=== PATIENT | female | born 1985 | race Caucasian/White ===

== ENCOUNTER 2017-03-24 21:31 | Inpatient (IN) | payer BC ==
[~2017-03-24] VITALS: Ht 162.6 cm; Wt 67.7 kg
[~2017-03-24 21:31] MED LIST: PREN1TAB73 PO; RANI-252 PO
[2017-03-24] MEDS ORDERED: LR 1,000 ML IV PRN (21:55)
[2017-03-24] MEDS ORDERED: OXYTOCIN 30 UNIT in D5LR 500 ML SCH (22:00)
[2017-03-24] MEDS ORDERED: CALCIUM CARBONATE 500mg Chewable TAB PO PRN (22:00)
[2017-03-24] MEDS ORDERED: ACETAMINOPHEN 500 MG TABLET PO PRN (22:00)
[2017-03-24] MEDS ORDERED: MAG-AL + SIM LIQUID 30 ML UDC PO PRN (22:00)
[2017-03-24] MEDS ORDERED: D5LR 1,000 ML IV PRN (22:00)
[2017-03-24 22:22] VITALS: BP 112/54; PULSE 82; RESP 20; TEMP 98.3
[2017-03-24 22:23] LABS: HGB - HEMOGLOBIN 11.5 GM/DL (12-16); MEAN CORPUSCULAR HGB 31.4 UUG (26-34); MEAN CORPUSCULAR HGB CONC(MCHC 33.8 GM/DL (31-37); MEAN CORPUSCULAR VOLUME 92.9 UM3 (80-100); MEAN PLATELET VOLUME 11.6 UM3 (9.4-12.4); RED BLOOD COUNT 3.66 M/MM3 (4.00-5.20); WBC - WHITE BLOOD COUNT 8.3 T/MM3 (4.5-11.0)
--- NOTE | 2017-03-24 23:35 | ANESOB ---
Epidural/ Date/Time DATE: 03/24/17 TIME: 23:34 Preop Diagnosis Procedure: Labor Epidural Plan: Epidural Height: 5 ' 4.00 " Weight: 67.700 kg BMI: kg/m2 P:1 Medications & Allergies Inpatient Medications Current Medications Medications (Trade) Dose Ordered Sig/Nasim Start Time Stop Time Status Last Admin Dose Admin Lactated Ringer's (Lactated Ringers) 1,000 ml @ 0 mls/hr Q0M PRN 03/24/17 21:55 UNV 03/24/17 22:19 0 MLS/HR Acetaminophen (Tylenol Extra Strength) 1-2 TABS = 500-1,000 MG Q4H PRN 03/24/17 22:00 UNV Al Hydroxide/Mg Hydroxide (Maalox) 30 ml Q4H PRN 03/24/17 22:00 UNV Calcium Carbonate 1-2 TABS Q2H PRN 03/24/17 22:00 UNV Dextrose/Lactated Ringer's 1,000 ml @ 0 mls/hr Q0M PRN 03/24/17 22:00 UNV 03/24/17 22:20 0 MLS/HR Oxytocin/Dextrose/ Lactated Ringer's (Pitocin/D5lr) 503 ml @ 0 mls/hr Q0M 03/24/17 22:00 UNV 03/24/17 22:20 0 MLS/HR Pnv95/Ferrous Fumarate/FA ( Tablet) 1 Each Tablet, 1 TAB PO DAILY, ( Reported) Last Taken: on 03/23/17 2200 Ranitidine HCl (Zantac 75) 75 Mg Tablet, 75 MG PO, (Reported) Last Taken: on 03/24/17 0800 Coded Allergies: erythromycin base (Verified Allergy, Mild, VOMITING, 03/10/17) Medical/Surgical History Anesthesia PMH: Denies: *Diabetes, Anesthesia Reactions, Malignant Hyperthermia Smoking Status: Never smoker Does patient use chewing tobac: No Second Hand Exposure: No Substance Use Type: does not use Alcohol Intake: none Anesthesia Adverse Reactions: FOUND none Family Hx of Anesthesia Advers: none Hx of Motion Sickness: No Complications During : No Pertinent Findings Laboratory Tests 03/24/17 22:13 EKG Rhythm: Sinus Rhythm Physical Exam Respiratory: Lungs clear Cardiovascular: No murmur, Regular rate, rhythm Airway Assessment Mallampati Score: I TMD: 3 Fingerbreadths Neck Extension: Good Overall Assessment: No Airway Concerns ASA: 2 Discussion Discussed risks/options/alternatives of anesthesia. Patient consents. Nursing pain assessment noted. Present for Discussion: Present: Spouse Attestation Statement Prior to the delivery of any anesthetic medication, I examined the patient, developed the plan, obtained the patient's consent and discussed the risk and benefits of the procedure with the patient/guardian. If the note happens to be signed after anesthesia start time, it is only due to providing efficient care of the patient and documenting at a time when the computer is available. ALFIE BONNER I [employer] COMPENSATION SPECIALIST March 24, 2017 23:35
[2017-03-24] MEDS ORDERED: ROPIVACAINE 1% 200 MG, SUFENTANIL 50 MCG in NORMAL SALINE 80 ML EPI PRN (23:45)
[2017-03-24] MEDS ORDERED: DiphenhydrAMINE 50 MG/ML INJECTION IV PRN (23:45)
[2017-03-24] MEDS ORDERED: NALOXONE 0.4mg/ml INJECTION IV PRN (23:45)
[2017-03-24] MEDS ORDERED: ONDANSETRON 4mg/2ml INJECTION IV PRN (23:45)
[2017-03-25] MEDS ORDERED: OXYTOCIN 30 UNIT in D5LR 500 ML IV ONE (01:43)
[2017-03-25] MEDS ORDERED: OXYTOCIN 30 UNIT in D5W 500 ML IV ONE (01:43)
[2017-03-25] MEDS ORDERED: MAG-AL + SIM LIQUID 30 ML UDC PO PRN (01:45)
[2017-03-25] MEDS ORDERED: HYDROCODONE/APAP 5 mg/325 mg TABLET PO PRN (01:45)
[2017-03-25] MEDS ORDERED: CALCIUM CARBONATE 500mg Chewable TAB PO PRN (01:45)
[2017-03-25] MEDS ORDERED: DiphenhydrAMINE 25 MG CAPSULE PO PRN (01:45)
[2017-03-25] MEDS ORDERED: MILK OF MAGNESIA 30 ML SUSP PO PRN (01:45)
[2017-03-25] MEDS ORDERED: ACETAMINOPHEN 500 MG TABLET PO PRN (01:45)
[2017-03-25] MEDS ORDERED: HYDROCORTISONE 2.5% CREAM 30 GM RECTALLY PRN (01:45)
[2017-03-25] MEDS ORDERED: PHENYLEPHRINE RECTAL SUPPOSITORY RECTALLY PRN (01:45)
[2017-03-25] MEDS: IBUPROFEN 800 MG TABLET PO PRN ×3 (05:00→21:36)
[2017-03-25 05:30] VITALS: BP 99/56; PULSE 70; RESP 16; TEMP 97.6; O2SAT 99
[2017-03-25] MEDS ORDERED: PRENATAL VITAMIN TABLET PO SCH (09:00)
[2017-03-25] MEDS: DOCUSATE CALCIUM 240 MG CAPSULE PO SCH (09:00)
--- NOTE | 2017-03-25 09:22 | ANESPO ---
Post-Op Note Date 03/25/17 Time: 09:22 Status Pt Participated in Evaluation: Pt participated in person Vital Signs Date Time Temp Pulse Resp B/P Pulse Ox O2 Delivery O2 Flow Rate FiO2 03/25/17 05:30 97.6 70 16 99/56 99 Room Air Respiratory Function: Airway patent, Regular respirations Cardiovascular Function: Regular pulse Mental Status: Alert/oriented Pain Level Intensity: 0 Hydration: Taking po fluids Complications during Recovery None apparent Follow-Up Instructions Instructions Per Surgeon ALFIE BONNER CRNA March 25, 2017 09:22
--- NOTE | 2017-03-25 10:25 | LDNF ---
DATE OF DELIVERY: 03/25/2017 DIAGNOSES 1. 31-year-old white female, G2, P1 at 38 weeks 5 days gestational age. 2. Premature rupture of membranes. 3. Pitocin induction for PROM. 4. Epidural block. 5. Spontaneous vaginal delivery. 6. OP rotating to OA. 7. Nuchal cord x 2. 8. 3120 g, male infant, 8/9/9 Apgars (Can Sheppard). This is a patient of Dr. Biggs who came in at approximately 9:30 this evening complaining of spontaneous rupture of membranes at 2050 p.m. on 03/24/2017. SROM was confirmed and the patient was initially 4 cm. The patient was admitted. heart tones were reactive. She was not darcy, so Pitocin was started for an induction because of PROM. It reached a maximum of 8 milliunits a minute. At approximately midnight she was 7 cm dilated, in OP presentation. At 1:10 a.m. she was completely dilated and OA presentation. We set up and began pushing. Shortly thereafter we had a spontaneous vaginal delivery from the OA position. was bulb suctioned after delivery of head and then again after delivery of the body. There was a nuchal cord x 2 that was reduced and then the cord was allowed to drain for about a [id number] before it was doubly clamped and cut. The infant's father cut the cord. Apgars were 8/9/9. Infant was initially placed on the mother's abdomen. Placenta delivered spontaneously 4 minutes later. EBL was 300 ml. Perineum was intact. At the time of dictation mother and infant are doing well. [facility]
[2017-03-25 13:57] VITALS: BP 106/58; PULSE 64; RESP 16; TEMP 97.7; O2SAT 100
[2017-03-25 15:28] LABS: HCT - HEMATOCRIT 30.4 % (36-46); MEAN CORPUSCULAR HGB CONC(MCHC 32.9 GM/DL (31-37); MEAN CORPUSCULAR VOLUME 94.1 UM3 (80-100); MEAN PLATELET VOLUME 11.6 UM3 (9.4-12.4); RED BLOOD COUNT 3.23 M/MM3 (4.00-5.20); WBC - WHITE BLOOD COUNT 10.6 T/MM3 (4.5-11.0)
--- NOTE | 2017-03-25 17:19 | PNPDOC ---
Progress Note Date 03/25/17 No complaints. Nursing well. AVSS Abd NT Stable Consider dismissal in a.milka. HILARIO VERNON MD March 25, 2017 17:19
[2017-03-25 17:45] VITALS: BP 126/66; PULSE 70; RESP 16; TEMP 98.2
[2017-03-25 21:30] VITALS: BP 111/61; PULSE 83; RESP 14; TEMP 98.2
--- NOTE | 2017-03-26 02:18 | NUR ---
SHIFT SUMMARY: VSS, pt's pain controlled with PO Motrin. Fundus firm at 1below umbilicus, light lochia noted. Up ad momo, voiding, showered and performing all personal cares. Pt tolerating general diet and water pitcher refilled x2. well, no assistance requested from RN. Bonding and caring for baby appropriately. Conrado in room and supportive.
--- NOTE | 2017-03-26 02:18 | NUR ---
Chart Check 24 hour chart check completed
[2017-03-26 05:11] VITALS: BP 102/62; PULSE 62; RESP 14; TEMP 98.1; O2SAT 100
[2017-03-26] MEDS: IBUPROFEN 800 MG TABLET PO PRN (05:37)
--- NOTE | 2017-03-26 08:12 | PNPDOC ---
Progress Note PPD2 Rubella: Immune GBS: Not Done/No Results Blood Type:O pos Subjective 03/26/17 Lochia: Minimal Pain: Controlled Voiding: Voiding Nausea and Vomiting: No Nausea/Vomiting Objective VSS AF Vital Signs Date Time Temp Pulse Resp B/P Pulse Ox O2 Delivery O2 Flow Rate FiO2 03/26/17 05:11 98.1 62 14 102/62 100 Room Air General: Alert and Oriented Respiratory: Non-labored Abdomen: Fundus Firm Extremities: Non-tender Edema: None Assessment Plan Routine Care, Discharge Home MARIELOS MATTHEWS BOOM OPERATOR March 26, 2017 08:11
[2017-03-26] MEDS: DOCUSATE CALCIUM 240 MG CAPSULE PO SCH (09:14)
== END 2017-03-26 10:38 | disposition home or self-care (01) | DRG 775 ==
LOC: MC 21:31
PROVIDERS: ADMIT Obstetrics & Gynecology; ATTEND Obstetrics & Gynecology
PROC: 10E0XZZ Delivery of Products of Conception, External Approach (ICD-10-PCS; principal; 2017-03-25)
PROC: 3E033VJ Introduction of Other Hormone into Peripheral Vein, Percutaneous Approach (ICD-10-PCS; 2017-03-25)
DX: O42.02 Full-term premature rupture of membranes, onset of labor within 24 hours of rupture (principal); O69.1XX0 Labor and delivery complicated by cord around neck, with compression, not applicable or unspecified; O32.8XX0 Maternal care for other malpresentation of fetus, not applicable or unspecified; Z3A.38 38 weeks gestation of pregnancy; Z37.0 Single live birth
CPT/HCPCS: 36415; 85027